=== PATIENT | female | born 1985 | race Caucasian/White ===

== ENCOUNTER 2016-10-03 21:54 | Emergency (ER) | payer MEDICAID ==
[2016-10-03 23:15] VITALS: BP 142/93
== END 2016-10-03 23:15 | disposition home or self-care (01) ==
LOC: ED 21:54
DX: L03.317 Cellulitis of buttock (principal); R03.0 Elevated blood-pressure reading, without diagnosis of hypertension

== ENCOUNTER 2017-03-05 09:10 | Inpatient (IN) | payer MEDICAID ==
[~2017-03-05] VITALS: Ht 172.7 cm; Wt 111.7 kg
[2017-03-05] MEDS ORDERED: BD ULTRA-FINE1 EAC2 MC (10:17)
[2017-03-05 10:57] LABS: BASOPHIL % 0.2 % (0-2); PLATELET COUNT 233 x10^3mcL (130-400); RED CELL DISTRIBUTION WIDTH 13.1 % (11.5-14.5)
[2017-03-05 10:58] LABS: microscopic required? YES; urine erythrocyte TRACE (NEGATIVE)
[2017-03-05] MEDS ORDERED: TYLENOL (11:05)
[2017-03-05 11:18] LABS: CALCIUM 8.3 mg/dL (8.5-10.1); CARBON DIOXIDE 29.3 mmol/L (21-32); CHLORIDE SERUM 101 mmol/L (98-107); CREATININE SERUM 0.9 mg/dL (0.6-1.0); GFR1 > 60 mL/min; GLUCOSE SERUM 297 mg/dL (74-106); POTASSIUM SERUM 4.3 mmol/L (3.5-5.1); SODIUM SERUM 135 mmol/L (136-145)
[2017-03-05 11:23] LABS: ALKALINE PHOSPHATASE 96 U/L (46-116); ALT/SGPT 14 U/L (14-59); AST/SGOT 8 U/L (15-37); BILIRUBIN TOTAL 0.65 mg/dL (0.20-1.00); TOTAL PROTEIN, SERUM 7.3 g/dL (6.4-8.2)
[2017-03-05 11:24] LABS: ALBUMIN 2.9 g/dL (3.4-5.0)
[2017-03-05 12:16] LABS: MAGNESIUM 1.7 mg/dL (1.8-2.4); PHOSPHOROUS 2.6 mg/dL (2.5-4.9)
[2017-03-05 12:17] LABS: T3 TOTAL 1.02 ng/mL
[2017-03-05 12:18] LABS: CHOLESTEROL/HDL RATIO 4.8
[2017-03-05 12:23] LABS: FREE T4 1.08 ng/dL (0.76-1.46); FREE THYROXINE INDEX 2.7 ug/dL (1.4-4.5); T4(THYROXINE) 8.4 ug/dL (4.7-13.3)
[2017-03-05 12:44] VITALS: BP 127/84
[2017-03-05 21:02] VITALS: BP 128/85
[2017-03-06 06:07] VITALS: BP 108/69
[2017-03-06 06:13] LABS: BASOPHIL % 0.1 % (0-2); PLATELET COUNT 262 x10^3mcL (130-400); RED CELL DISTRIBUTION WIDTH 12.8 % (11.5-14.5)
[2017-03-06 06:16] LABS: CALCIUM 8.2 mg/dL (8.5-10.1); CARBON DIOXIDE 23.3 mmol/L (21-32); CHLORIDE SERUM 103 mmol/L (98-107); CREATININE SERUM 0.9 mg/dL (0.6-1.0); GFR1 > 60 mL/min; GLUCOSE SERUM 270 mg/dL (74-106); MAGNESIUM 1.8 mg/dL (1.8-2.4); POTASSIUM SERUM 3.9 mmol/L (3.5-5.1); SODIUM SERUM 135 mmol/L (136-145)
[2017-03-06 13:31] VITALS: BP 133/82
[2017-03-06 17:15] VITALS: BP 109/62
[2017-03-06 21:04] VITALS: BP 109/64
[2017-03-07 05:47] VITALS: BP 111/60
[2017-03-07 06:15] LABS: PLATELET COUNT 252 x10^3mcL (130-400); RED CELL DISTRIBUTION WIDTH 12.8 % (11.5-14.5)
[2017-03-07 06:31] LABS: CALCIUM 7.8 mg/dL (8.5-10.1); CARBON DIOXIDE 22.1 mmol/L (21-32); CHLORIDE SERUM 100 mmol/L (98-107); CREATININE SERUM 1.1 mg/dL (0.6-1.0); GFR1 > 60 mL/min; GLUCOSE SERUM 277 mg/dL (74-106); POTASSIUM SERUM 3.7 mmol/L (3.5-5.1); SODIUM SERUM 132 mmol/L (136-145)
[2017-03-07 06:49] LABS: BASOPHIL % 0 % (0-2)
[2017-03-07 09:19] VITALS: BP 88/42
[2017-03-07 10:38] VITALS: BP 84/55
[2017-03-07 12:38] LABS: AMPHETAMINE QUAL UR NONE DETECTED (NEG <=1000)
[2017-03-07 13:25] VITALS: BP 89/54
[2017-03-07 17:02] VITALS: BP 95/54
[2017-03-07 21:30] VITALS: BP 108/63
[2017-03-08 05:07] VITALS: BP 124/74
[2017-03-08 06:25] LABS: CALCIUM 7.5 mg/dL (8.5-10.1); CARBON DIOXIDE 23.3 mmol/L (21-32); CHLORIDE SERUM 103 mmol/L (98-107); CREATININE SERUM 1.1 mg/dL (0.6-1.0); GFR1 > 60 mL/min; GLUCOSE SERUM 196 mg/dL (74-106); MAGNESIUM 1.7 mg/dL (1.8-2.4); PHOSPHOROUS 1.8 mg/dL (2.5-4.9); POTASSIUM SERUM 3.5 mmol/L (3.5-5.1); SODIUM SERUM 135 mmol/L (136-145)
[2017-03-08 06:49] LABS: PLATELET COUNT 230 x10^3mcL (130-400); RED CELL DISTRIBUTION WIDTH 13.1 % (11.5-14.5)
[2017-03-08 06:53] LABS: BASOPHIL % 0 % (0-2)
[2017-03-08 08:59] VITALS: BP 103/59
[2017-03-08 13:30] VITALS: BP 113/56
[2017-03-08 17:00] VITALS: BP 125/63
[2017-03-08 21:18] VITALS: BP 91/57
[2017-03-08 23:30] VITALS: BP 112/63
[2017-03-09 04:56] VITALS: BP 102/66
[2017-03-09 06:47] LABS: PLATELET COUNT 262 x10^3mcL (130-400); RED CELL DISTRIBUTION WIDTH 13.1 % (11.5-14.5)
[2017-03-09 07:11] LABS: CALCIUM 8.1 mg/dL (8.5-10.1); CARBON DIOXIDE 19.4 mmol/L (21-32); CREATININE SERUM 1.2 mg/dL (0.6-1.0); MAGNESIUM 2.1 mg/dL (1.8-2.4); PHOSPHOROUS 1.8 mg/dL (2.5-4.9); POTASSIUM SERUM 3.4 mmol/L (3.5-5.1)
[2017-03-09 10:16] LABS: BAND NEUTROPHIL 29 % (0-10); BASOPHIL 0 % (0-2); MONOCYTE 2 % (0-7); PLATELET MORPHOLOGY PLATELETS NORMAL; SEGMENTED NEUTROPHILS 67 % (37-75); rbc morphology (normal/abnorm) NORMAL (NORMAL)
[2017-03-09 10:22] VITALS: BP 102/59
[2017-03-09 13:27] VITALS: BP 97/57
[2017-03-09 17:13] VITALS: BP 97/58
[2017-03-09 21:16] VITALS: BP 109/74
[2017-03-10 05:00] VITALS: BP 111/78
[2017-03-10 06:07] VITALS: BP 111/78
[2017-03-10 09:48] VITALS: BP 105/63
[2017-03-10 10:28] LABS: PLATELET COUNT 242 x10^3mcL (130-400); RED CELL DISTRIBUTION WIDTH 13.4 % (11.5-14.5)
[2017-03-10 10:30] LABS: CALCIUM 7.9 mg/dL (8.5-10.1); CARBON DIOXIDE 24.1 mmol/L (21-32); CREATININE SERUM 1.4 mg/dL (0.6-1.0); PHOSPHOROUS 1.6 mg/dL (2.5-4.9); POTASSIUM SERUM 3.1 mmol/L (3.5-5.1)
[2017-03-10 11:45] LABS: BAND NEUTROPHIL 14 % (0-10); BASOPHIL 0 % (0-2); MONOCYTE 1 % (0-7); SEGMENTED NEUTROPHILS 77 % (37-75)
[2017-03-10 11:46] LABS: PLATELET MORPHOLOGY PLATELETS NORMAL; rbc morphology (normal/abnorm) NORMAL (NORMAL)
[2017-03-10 13:05] VITALS: BP 117/63
[2017-03-10 17:06] VITALS: BP 103/55
[2017-03-10 21:33] VITALS: BP 103/68
[2017-03-11 05:59] VITALS: BP 110/68
[2017-03-11 08:58] LABS: PLATELET COUNT 257 x10^3mcL (130-400); RED CELL DISTRIBUTION WIDTH 13.6 % (11.5-14.5)
[2017-03-11 10:08] LABS: CALCIUM 7.5 mg/dL (8.5-10.1); CARBON DIOXIDE 22.4 mmol/L (21-32); CHLORIDE SERUM 108 mmol/L (98-107); CREATININE SERUM 1.1 mg/dL (0.6-1.0); GFR1 > 60 mL/min; GLUCOSE SERUM 91 mg/dL (74-106); MAGNESIUM 1.8 mg/dL (1.8-2.4); PHOSPHOROUS 1.6 mg/dL (2.5-4.9); SODIUM SERUM 138 mmol/L (136-145)
[2017-03-11 10:19] VITALS: BP 107/67
[2017-03-11 11:27] LABS: BAND NEUTROPHIL 15 % (0-10); BASOPHIL 0 % (0-2); METAMYELOCTE 1 % (0-2); MONOCYTE 2 % (0-7); SEGMENTED NEUTROPHILS 72 % (37-75)
[2017-03-11 11:28] LABS: PLATELET MORPHOLOGY PLATELETS NORMAL
[2017-03-11 16:15] VITALS: BP 107/67
[2017-03-11 16:25] VITALS: BP 96/60
[2017-03-11] MEDS ORDERED: CLEOCIN HCL150 MG PO (21:36)
[2017-03-11] MEDS ORDERED: BD LACTINEX1.4 MG PO (21:36)
== END 2017-03-11 21:52 | disposition left against medical advice (07) | DRG 364 ==
LOC: ED 09:10 → DU 11:15 → MU 03-11 13:27
PROVIDERS: Emergency Medicine; Family Medicine; Student in an Organized Health Care Education/Training Program; Surgery; ADMIT Family Medicine Sports Medicine
PROC: 0J990ZZ Drainage of Buttock Subcutaneous Tissue and Fascia, Open Approach (ICD-10-PCS; principal; 2017-03-06 08:00)
DX: L02.31 Cutaneous abscess of buttock (principal); N17.0 Acute kidney failure with tubular necrosis; E44.0 Moderate protein-calorie malnutrition; D68.69 Other thrombophilia; E11.65 Type 2 diabetes mellitus with hyperglycemia; E87.1 Hypo-osmolality and hyponatremia; E83.42 Hypomagnesemia; E87.6 Hypokalemia; E83.39 Other disorders of phosphorus metabolism; E83.51 Hypocalcemia; R31.9 Hematuria, unspecified; E66.9 Obesity, unspecified; E78.5 Hyperlipidemia, unspecified; Z68.37 Body mass index [BMI] 37.0-37.9, adult
CPT/HCPCS: 83880; 84439; 85378; 94150; J1644; J1815; J1885; J2175; J2250; J2405; J2543; J2704; J3010; J3475; J3480; J3490; J7030; Q0092